=== PATIENT | female | born 1950 | race Hispanic/Latino ===

== ENCOUNTER 2018-01-26 10:37 | Outpatient (CLI) | payer MEDICARE, BC ==
[2018-01-26 13:17] LABS: Hemoglobin 12.8 g/dL (12.0-16.0); Mean Corpuscular HGB CONC 32.6 g/dL (32.0-36.0); Mean Corpuscular Hemoglobin 29.8 pg (27.0-31.0); Mean Corpuscular Volume 91.6 fL (78.0-98.0); Mean Platelet Volume 7.8 fL (7.4-10.4); Platelet Count 237 thou/uL (130-400); RBC Distribution Width 12.2 % (11.5-14.5); Red Blood Cell (RBC) Count 4.28 mill/uL (4.20-5.40); White Blood Cell (WBC) Count 5.5 thou/uL (4.8-10.8)
[2018-01-26 13:18] LABS: PTT 28.2 SEC (22.9-36.1); Prothrombin Time 13.4 SEC (12.0-14.7)
[2018-01-26 13:27] LABS: Anion Gap 15 mmol/L (10-20); BUN (Urea Nitrogen) 14 mg/dL (9.8-20.1); Calc. Creatinine Clearance 0 mL/min (70-130); Calcium 9.3 mg/dL (7.8-10.44); Carbon Dioxide 25 mmol/L (23-31); Chloride 102 mmol/L (98-107); Estimated GFR-MDRD 75; Glucose 98 mg/dL (80-115); Potassium 3.6 mmol/L (3.5-5.1); Sodium 138 mmol/L (136-145)
== END 2018-01-26 10:38 | disposition home or self-care (01) ==
LOC: LABBT 10:37
PROVIDERS: ATTEND Neurological Surgery
DX: Z01.818 Encounter for other preprocedural examination (principal); M48.061 Spinal stenosis, lumbar region without neurogenic claudication; M43.16 Spondylolisthesis, lumbar region
CPT/HCPCS: 80048; 85027; 85610; 85730; 93005; 93010

== ENCOUNTER 2018-02-11 05:42 | Inpatient (IN) | payer MEDICARE, BC ==
[2018-01-26 11:06] VITALS: BMI 43.2
--- NOTE | 2018-02-09 13:37 | HP ---
HISTORY OF PRESENT ILLNESS: This is a 67-year-old female who reports to our office for evaluation of lumbar back pain. The patient states she was seen in our office for the same complaint in 2016. Irasema moncada has had a previous lumbar surgery in 1999. She states that her pain has been progressively getting worse and is now preventing her from doing daily activities such as fishing or walking to her neighb or's house. She reports that if she stands her back tightens up significantly along her belt line. To go shopping, she needs to use a motorized cart or she leans on the shopping cart. She cannot walk for any length of time. Today, sitting in the office her pain is a 3/10. When her pain starts she needs to sit or lay down to make it ease up. The patient denies any radicular symptoms. No numbness or tingling. She has not had physical therapy in 2 years. No recent epidural steroid injections. REVIEW OF SYSTEMS: A 10-point review of systems has been completed and is negative other than stated above in the HPI. PAST MEDICAL HISTORY: Back surgery in 1999. Bilateral knee replacements, phlebitis carpal tunnel, s inus issues, sleep apnea, Betancourt's palsy, hypertension, depression, anxiety, diabetes. PAST SURGICAL HISTORY: Back surgery in 1999 and bilateral knee replacements in 2006, carpal tunnel r elease in 2014, trigger finger release in 2017. FAMILY HISTORY: Father is , diagnosed with hypertension, heart disease, and stroke. Mother is , diagnosed with diabetes. Patient's daughter is alive. SOCIAL HISTORY: The patient is a nonsmoker. Drinks alcohol rarely. Does not use any other illicit medications or drugs. The patient is currently sexually active and drinks coffee 1-2 cups of caffein ated beverage daily. MEDICATIONS: Aspirin, metoprolol, citalopram, hydrocodone, acetaminophen, valsartan, hydrochlorothia zide. ALLERGIES: No known drug allergies. PHYSICAL EXAMINATION: CONSTITUTIONAL: The patient is well-appearing, well-nourished, alert. NEUROLOGICAL: Mental status, oriented to time, place and person. Normal attention span and concentr ation. Speech is spontaneous and fluent. Comprehension is intact. Content is appropriate. Normal fund of knowledge. CRANIAL NERVES: Pupils equal, round, reactive to light. Extraocular movements are intact. Hearing is intact. MOTOR EXAM: Muscle strength is normal in the lower extremities. Muscle tone and bulk is normal, 5/5 bilateral strength in IP, KE, KS, DS, PS, EHL. No radiculopathy. Negative leg raise bilaterally. Rotation of bilateral hips normal. Nontender to palpation. Deep tendon reflexes; brisk patellar ref lexes. SENSORY: Light touch is intact. GAIT AND STATION: Sit to stand is slow. Patient has a boot on the right lower extremity difficult f or walking. RESPIRATORY: Normal work of breathing on room air. SKIN: No rashes or lesions on exposed skin. PSYCHIATRIC: Normal mood and affect. IMAGING: MRI L1-2 stenosis, left greater than right, L3-4 moderate stenosis, L4-5 and L5-S1 stenosis from subluxation. X-rays; flexion, extension shows instability at L4-5 and L5-S1. ASSESSMENT AND PLAN: Listhesis, lumbar stenosis with neurogenic claudication. Dr. Salazar has of fered surgery, laminectomy and TLIF L1-3, L3-4, L4-5, L5-S1. CONSENT: We have discussed the indications, risks, benefits, and alternatives, and expected results from surgery. The risks discussed included, but were not limited to bleeding, infection, CSF leak, n erve damage, weakness, incontinence, cauda equina injury, arachnoiditis, paralysis, ventilator depend ence, wheelchair dependence, loss of vision, hardware misplacement, cardiopulmonary complications of anesthesia or . Long-term complications include, but are not limited to degradation of surround ing disks and the need for further surgery. The patient states she understands the risks and is will ing to proceed with surgery.
[2018-02-11] MEDS ORDERED: Sodium Chloride 0.9% 30 ML ONE (06:16)
[2018-02-11] MEDS ORDERED: Bupivacaine HCl 0.5%/Epinephrine 1:200,000/PF 30 ml Vial ONE (06:16)
[2018-02-11] MEDS ORDERED: Thrombin 5000 UNITS/5 ML VIAL ONE (06:16)
[2018-02-11] MEDS ORDERED: CEFAZOLIN/Water 2 GM/20 ML SYRINGE ONE (06:32)
[2018-02-11] MEDS ORDERED: Albumin 5% 500 ML ONE (06:41)
[2018-02-11] MEDS ORDERED: Fentanyl 100 MCG/2 ML VIAL ONE ×4 (07:04→16:14)
[2018-02-11] MEDS ORDERED: HYDROmorphone 2 MG/ML VIAL SLOW IVP PRN (14:54)
[2018-02-11] MEDS ORDERED: Meperidine HCl/PF 25 MG/ML VIAL SLOW IVP PRN (14:54)
[2018-02-11] MEDS ORDERED: Morphine Sulfate 2 MG/ML SYRINGE SLOW IVP PRN (14:54)
[2018-02-11] MEDS ORDERED: Ondansetron HCl/PF 4 MG/2 ML Vial IVP PRN ×2 (14:54→15:11)
[2018-02-11] MEDS ORDERED: Promethazine HCl 25 MG/ML VIAL IM PRN (14:54)
[2018-02-11] MEDS ORDERED: Promethazine HCl 25 MG/ML VIAL SLOW IVP PRN (14:54)
[2018-02-11] MEDS ORDERED: Acetaminophen 325 MG TAB PO PRN (15:11)
[2018-02-11] MEDS ORDERED: Zolpidem Tartrate 5 MG TAB PO PRN (15:11)
[2018-02-11] MEDS ORDERED: Prochlorperazine 10 MG/2 ML VIAL IM PRN (15:11)
[2018-02-11] MEDS ORDERED: Promethazine HCl 12.5 MG SUPP PR PRN (15:11)
[2018-02-11] MEDS ORDERED: diphenhydrAMINE 25 MG CAP PO PRN (15:11)
[2018-02-11] MEDS ORDERED: Mag-Al 1200 mg/1200 mg/30 ML UDCUP PO PRN (15:11)
[2018-02-11] MEDS ORDERED: Promethazine 25 MG TAB PO PRN (15:11)
[2018-02-11] MEDS ORDERED: tiZANidine HCl 4 MG TAB PO PRN (15:11)
[2018-02-11] MEDS ORDERED: HYDROcodone/Acetaminophen 10/325 mg Tablet PO PRN ×2 (15:11)
[2018-02-11] MEDS ORDERED: Morphine 4 MG/ML VIAL SLOW IVP PRN (15:11)
[2018-02-11] MEDS ORDERED: Fleet Enema 133 ML BOT PR PRN (15:11)
[2018-02-11] MEDS ORDERED: Acetaminophen 650 MG Suppository PR PRN (15:11)
[2018-02-11] MEDS ORDERED: Bisacodyl 10 MG SUPP PR PRN (15:11)
[2018-02-11] MEDS ORDERED: diphenhydrAMINE 50 MG/ML VIAL IVP PRN (15:11)
[2018-02-11] MEDS ORDERED: PROPOFOL 200 MG/20 ML VIAL ONE (15:26)
[2018-02-11] MEDS ORDERED: PHENYLEPHRINE-NS 100 MCG/ML 10 ML SYRINGE ONE (15:26)
[2018-02-11] MEDS ORDERED: Vecuronium 10 MG VIAL ONE (15:26)
[2018-02-11] MEDS ORDERED: Ondansetron HCl/PF 4 MG/2 ML Vial ONE (15:26)
[2018-02-11] MEDS ORDERED: Glycopyrrolate 0.2 MG/ML 5 ML SYRINGE ONE ×2 (15:26)
[2018-02-11] MEDS ORDERED: Lidocaine 1% PF 5 ML VIAL ONE (15:26)
[2018-02-11] MEDS: Sodium Chloride 0.9% 1,000 ML IV SCH (17:29)
[2018-02-11] MEDS: Acetaminophen/Codeine 30-300mg Tablet PO PRN ×2 (18:28→21:25)
--- NOTE | 2018-02-11 20:12 | OP ---
DATE OF PROCEDURE: 02/11/2018 SURGEON: Sachin Salazar M.D. SHANK FAKER: Desirae Gonzalez PA-C. PREOPERATIVE INDICATION: Treat pain, prevent neurological deterioration, treat spinal instability. PREOPERATIVE DIAGNOSES: Multilevel lumbar stenosis with severe neurogenic claudication, unstable spo ndylolisthesis at L4-L5, spondylolisthesis with foraminal stenosis at L5-S1. POSTOPERATIVE DIAGNOSES: Multilevel lumbar stenosis with severe neurogenic claudication, unstable sp ondylolisthesis at L4-L5, spondylolisthesis with foraminal stenosis at L5-S1. OPERATIVE PROCEDURE: Decompressive laminectomy; medial facetectomy; foraminotomy at L1-2, L3-4, L4-5 , L5-S1; transforaminal lumbar interbody arthrodesis L4-5 and L5-S1; placement of intervertebral biom echanical device L4-L5, L5-S1; pedicle screw and deb instrumentation L4-S1; posterior lateral arthrod esis L4-S1; local morselized autograft, morselized allograft. PREOPERATIVE MEDICATION: Ancef 2 grams IV. DRAIN NUMBER: Zero. DRAIN TYPE: None. OPERATIVE DICTATION: The patient was brought to the operating room. General endotracheal anesthesia was induced. The patient was positioned prone in the Amaury frame with her chest and hips supporte d by gel-filled chest rolls. A lateral fluoro radiograph was used to plan our incision. The lumbar skin was sterilely prepped and draped. We opened the incision with a 10 blade knife and controlled b leeding with bipolar and monopolar cautery. We used monopolar cautery to dissect through subcutaneou s tissues to the thoracodorsal fascia. We incised the fascia in the midline and we reflected the par aspinal muscles off the spinous process and lamina from L1-S1. A lateral fluoro radiograph confirmed the levels upon which we were operating. We then carried our dissection over the L3-L4 and L4-5 fac et joints laterally to identify the transverse processes of L4-L5 as well as the sacral ala on both s ides. We irrigated with bacitracin irrigation. We began our decompression at L1-2. Here an Adson r ongeur was used to remove the L1 spinous process and the superior portion of L2. A Kerrison rongeur was used to fashion a laminectomy. We needed to perform considerable amount of medial facetectomy to decompress across the interspace. We performed foraminotomies over the exiting L2 nerve roots. At the completion of our decompression, a Lemos ball could pass through the lateral recess and out the foramina without impingement. We irrigated with bacitracin irrigation, waxed the bone edges and turn ed our attention to the lower portion of the incision. In a similar fashion, we decompressed from L3-S1. We used an Adson rongeur to remove spinous process es from L3 to the top of the sacrum. The patient had had previous surgery at L4-5 and we are careful to dissect scar tissue away from the lateral confines of the spinal canal at L4-5 and around the L5 nerve roots. A Kerrison rongeur was used to fashion a laminectomy from L3-S1. We widened our connie ctomy defect until we were flush with the L3, L4, L5, and S1 pedicles. We performed foraminotomies o maine the exiting L3, L4, L5, and S1 nerve roots. Nerve roots were terribly compressed at L4-5 and L5- S1 due to spondylolisthesis. We turned our attention to arthrodesis. We removed the facet joint on the left at L4-5 and L5-S1 and with the facets out of the way, we could enter the interspace at L4-5 and L5-S1 through the foramen. We incised the disk space at both disk levels. We removed disk contents using curettes and rongeurs and then we brought a set of bone rasps into the field. We measured the height of each of the interspaces to 9 mm with a bone rasp. We pre pared the endplates for grafting with curets. We brought two separate PEEK intervertebral graft into the field. These were 9 mm in height. All of her laminectomy bone was cleaned of its soft tissue a ttachments, morselized and added to demineralized bone matrix as our fusion substrate. This substrat e was placed into the PEEK graft and the grafts were advanced into the respective interspaces under r adiographic guidance to the appropriate depth. We turned our attention to pedicle screw instrumentat ion. Using bony anatomic landmarks, palpation of the medial portion of the pedicles, and a lateral fluoro radiograph as a guide, we chose entry points for 6 pedicle screws. We drilled out our entry points a nd used the bone awl to advance them through the pedicles into the vertebral bodies. We tapped them with a threaded tap and probed them. Each of the trajectories was completely encased in bone. We th en placed 6.5 mm diameter screws into the pedicles at L4, L5, and S1 bilaterally. A 360 degree image set was generated with our isocentric C-arm. This confirmed adequate positioning of our pedicle scr ew instrumentation. We then irrigated copiously with bacitracin irrigation. We irrigated the latera l recesses. Then, with a high-speed drill, we decorticated the transverse process of L4-L5 and the s acral ala bilaterally. Over the decorticated bone, we left demineralized bone matrix and morselized autograft as our posterolateral fusion substrate. We brought rods down into the screw heads. We tig htened caps over the rods. Before final tightening, we compressed across the interspaces to keep the intervertebral graft in place. We used a fbrvhe-ttafrui-wzqmva mechanism to ensure adequate tightne ss of the caps. We passed a Lemos ball probe out the foramen along with the L3, L4, L5, and S1 nerv e roots and found them completely free. We controlled bleeding with gentle bipolar cautery. We kira sharona the wound with vancomycin powder. We closed the wound in anatomic layers and applied a sterile d ressing. This was a clean case and no contamination.
[2018-02-11] MEDS: CEFAZOLIN/Water 2 GM/20 ML SYRINGE SLOW IVP SCH (21:15)
[2018-02-11] MEDS: Atorvastatin Calcium 20 MG TAB PO SCH (21:16)
[2018-02-12] MEDS: Sodium Chloride 0.9% 1,000 ML IV SCH ×2 (03:43→18:11)
[2018-02-12] MEDS: CEFAZOLIN/Water 2 GM/20 ML SYRINGE SLOW IVP SCH (04:01)
[2018-02-12] MEDS: Acetaminophen/Codeine 30-300mg Tablet PO PRN ×4 (04:53→19:57)
[2018-02-12] MEDS ORDERED: Prevnar 13-Val Conj/PF 0.5 ML SYRINGE IM ONE ×2 (09:00→11:00)
[2018-02-12] MEDS ORDERED: VALSART PO SCH (09:00)
[2018-02-12] MEDS ORDERED: HCTZ PO SCH (09:00)
--- NOTE | 2018-02-12 09:05 | PRG ---
DATE OF SERVICE: 02/12/2018 SUBJECTIVE: The patient is a 67-year-old female status post L1-L2, L3 -S1 laminectomies, L4-L5 and L5-S1 TLIF postoperative day #1. Overnight, she reports that she has had some discomfort in the low back, but this is controlled well with p.o. pain medications. She denies any radicular symptoms, numbness, tingling or weakness in the lower extremities. She is having some difficulty with mobilization secondary to her pain. She was tolerating regular diet and voiding appropriately. She also had some slight dark red bloody drainage from her incision. At bedside she is comfortable, in no acute distress. She has free active range of motion of all extremities, 5/5 strength throughout. Sensation is intact to light touch. There is some dark red bloody drainage on her dressing, which has been recently reinforced. ASSESSMENT AND PLAN: We will continue to monitor her incision closely with b.i.d. dressing changes and also continued mobilization with the assistance of PT and OT. We discussed the possibility of eventual inpatient rehabilitation and the patient is interested in this idea as long as the facility closer to where she lives in [place]. They are considering [place] inpatient rehabilitation. I will consult case management for assistance with the discharge planning. PRIMITIVO
[2018-02-12] MEDS: Valsartan 80 MG TAB PO SCH (09:16)
[2018-02-12] MEDS: Hydrochlorothiazide 25 MG TAB PO SCH (09:16)
[2018-02-12] MEDS: Citalopram 20 MG TAB PO SCH (09:16)
[2018-02-12] MEDS: Atorvastatin Calcium 20 MG TAB PO SCH (21:18)
[2018-02-13] MEDS: Sodium Chloride 0.9% 1,000 ML IV SCH ×2 (06:06→22:24)
[2018-02-13] MEDS: Acetaminophen/Codeine 30-300mg Tablet PO PRN ×4 (07:46→20:52)
--- NOTE | 2018-02-13 08:33 | PRG ---
DATE OF SERVICE: 02/13/2018 SUBJECTIVE: The patient is postoperative day #3 status post L1-L2, L3-S1 laminectomies, L4-L5 and L5-S1 TLIF. Overnight, she reports she did well and did not require any pain medication. However, this morning is complaining of discomfort in the low back. She has no radicular symptoms, numbness, tingling or weakness in the lower extremities. She just recently was given pain medicine prior to my arrival this morning. She is sitting up on the side of bed and eating her breakfast. She has been compliant with her TLSO brace. I examined her incision, it appears dry and intact. There is some bloody drainage on the dressing but no active drainage. She has 5/5 strength throughout. Sensation is intact to light touch. She has a steady gait with ambulation only short distances such as to the bathroom. We will continue to work on pain control and mobilization with the assistance of PT. The patient is still interested in going to inpatient rehabilitation in [place] or the [facility] [place]. PRIMITIVO
[2018-02-13] MEDS: Hydrochlorothiazide 25 MG TAB PO SCH (08:37)
[2018-02-13] MEDS: Valsartan 80 MG TAB PO SCH (08:37)
[2018-02-13] MEDS: Citalopram 20 MG TAB PO SCH (08:38)
[2018-02-13] MEDS: Atorvastatin Calcium 20 MG TAB PO SCH (20:51)
[2018-02-14] MEDS: Acetaminophen/Codeine 30-300mg Tablet PO PRN ×5 (02:40→21:44)
--- NOTE | 2018-02-14 06:29 | PRG ---
DATE OF SERVICE: 02/14/2018 Ms. Wheat is 4 days out from a decompression fusion lumbar spine. She had 2 levels of listhesis and mu ltiple levels of stenosis that have been treated. Ms. Wheat reports a reasonably good weekend and she has spoken with our case packer about placement in inpatient rehabilitation, either in [place] or the [facility]. Overnight, the vitals have been stable. On examination, Ms. Wheat had good neurological function in the lower extremities and tells me that her radicular pain is gone. My plan for today is to continue mobilization and to look for inpatient rehabilitation placement. If that can be done today then she would be a candidate for discharge.
[2018-02-14] MEDS: Valsartan 80 MG TAB PO SCH (07:57)
[2018-02-14] MEDS: Hydrochlorothiazide 25 MG TAB PO SCH (07:57)
[2018-02-14] MEDS: Sodium Chloride 0.9% 1,000 ML IV SCH ×2 (07:58→23:33)
[2018-02-14] MEDS: Citalopram 20 MG TAB PO SCH (09:20)
[2018-02-14] MEDS: Milk Of Magnesia 30 ML UDCUP PO PRN (12:12)
[2018-02-14] MEDS: Atorvastatin Calcium 20 MG TAB PO SCH (21:44)
[2018-02-15] MEDS: Acetaminophen/Codeine 30-300mg Tablet PO PRN ×5 (01:11→20:29)
--- NOTE | 2018-02-15 06:36 | PRG ---
DATE OF SERVICE: 02/15/2018 Ms. Wheat is 5 days out from decompression fusion lumbar spine, she had multiple levels of stenosis and 2 levels of spondylolisthesis. Ms. Wheat is making slow, but steady progress. She had a low-grade fe maine yesterday evening, but she has been working on her Voldyne incentive spirometer. The T-max recorded was 100.1 degrees Fahrenheit. Neurological examination is reassuring. There is s ome significant serosanguineous drainage from her wound. Ms. Wheat is a good candidate for inpatient rehabilitation. I think she will make significant progress with physical therapy in the coming days to weeks. She does not need to wear her brace in bed, she can sit up, place it on and use it for all upright activities. When she is resting comfortably in a recliner or in bed it can be removed so that her incision can heal well. If she continues to have si gnificant drainage, she might benefit from an oral antibiotic for a week to 10 days.
--- NOTE | 2018-02-15 10:49 | ULT ---
VENOUS DUPLEX SONOGRAM BILATERAL LOWER EXTREMITY: History: Recent surgery. Bilateral leg pain and edema. FINDINGS: Each common femoral vein and greater saphenous junction were evaluated along with each femoral, deep femoral, popliteal, and posterior tibial vein. There is good color and spectral doppler flow, mir tano, and augmentation. IMPRESSION: No sonographic evidence of DVT within either lower extremity. POS: ROSY
[2018-02-15] MEDS: Hydrochlorothiazide 25 MG TAB PO SCH (10:50)
[2018-02-15] MEDS: Valsartan 80 MG TAB PO SCH (10:50)
[2018-02-15] MEDS: Citalopram 20 MG TAB PO SCH (10:51)
[2018-02-15] MEDS: Milk Of Magnesia 30 ML UDCUP PO PRN (12:39)
[2018-02-15] MEDS: Sodium Chloride 0.9% 1,000 ML IV SCH (13:33)
[2018-02-15] MEDS: Atorvastatin Calcium 20 MG TAB PO SCH (20:30)
[2018-02-16] MEDS: Acetaminophen/Codeine 30-300mg Tablet PO PRN ×3 (00:09→09:37)
[2018-02-16] MEDS: Sodium Chloride 0.9% 1,000 ML IV SCH (03:06)
--- NOTE | 2018-02-16 07:34 | PRG ---
DATE OF SERVICE: 02/16/2018 SUBJECTIVE: Ms. Wheat has been doing well. Her fever from 2 days ago has gone down. She has been usi ng her Voldyne and walking more. She is ambulating towards the hallway and few steps in the halls. She has been accepted to inpatient rehabilitation in [place], [place] where she lives. Vital signs overnight show a T-max of 99.2, the rest are stable. Her neurological examination is antoinette te good. Arrangements were made for transferr to rehab today. We will continue the antibiotic thera py given the amount of drainage for another week.
[2018-02-16] MEDS: Citalopram 20 MG TAB PO SCH (09:37)
[2018-02-16] MEDS: Hydrochlorothiazide 25 MG TAB PO SCH (10:41)
[2018-02-16] MEDS: Valsartan 80 MG TAB PO SCH (10:41)
[2018-02-16 11:35] VITALS: BP 98/52; TEMP 98.2
[2018-02-16] MEDS ORDERED: Cephalexin 250 MG CAP PO SCH (12:00)
== END 2018-02-16 12:52 | DRG 460 ==
LOC: SURG A 05:42 → EDSTATUS 14:17 → SURG B 15:58
PROVIDERS: ADMIT Neurological Surgery; ATTEND Neurological Surgery
PROC: 0SG00AJ Fusion of Lumbar Vertebral Joint with Interbody Fusion Device, Posterior Approach, Anterior Column, Open Approach (ICD-10-PCS; principal; 2018-02-11)
PROC: 0SG30AJ Fusion of Lumbosacral Joint with Interbody Fusion Device, Posterior Approach, Anterior Column, Open Approach (ICD-10-PCS; 2018-02-11)
PROC: 01NB0ZZ Release Lumbar Nerve, Open Approach (ICD-10-PCS; 2018-02-11)
DX: M48.062 Spinal stenosis, lumbar region with neurogenic claudication (principal); M43.16 Spondylolisthesis, lumbar region; M48.061 Spinal stenosis, lumbar region without neurogenic claudication; F32.9 Major depressive disorder, single episode, unspecified; E11.9 Type 2 diabetes mellitus without complications; G47.30 Sleep apnea, unspecified; Z96.653 Presence of artificial knee joint, bilateral; I10 Essential (primary) hypertension; Z79.82 Long term (current) use of aspirin; Z79.899 Other long term (current) drug therapy; F41.9 Anxiety disorder, unspecified
CPT/HCPCS: 36415; 76001; 86850; 86900; 86901; 90471; 90670; 93970; A4216; C1713; C1768; G0009; G8978-GP-CL; G8979-GP-CJ; G8987-GO-CK; G8988-GO-CJ; J0131; J0670; J2001; J2405; J2704; J3010; J3370; J3490; P9045